=== PATIENT | female | born 1985 ===

== ENCOUNTER 2017-04-20 23:19 | Emergency (ER) | payer OTHER ==
[2017-04-20 23:32] VITALS: BP 135/84; PULSE 98; RESP 20; TEMP 98.3; O2SAT 99
--- NOTE | 2017-04-20 23:49 | ED PDOC ---
HPI: Psych/Substance Abuse Time Seen by Provider: 04/20/17 23:37 Chief Complaint (Nursing): Anxiety Chief Complaint (Provider): anxiety History Per: Patient, EMS Additional Complaint(s): Patient states she was sitting at home when she had a panic attack. She states she felt a sensation of cold sweats, palpitations and chest pressure. Patient has had panic attacks in the past but this felt longer than usual prompting her to call EMS. Upon arrival patient admits to feeling very stressed and states that she still does have slight chest pressure. Patient denies any shortness of breath. She denies suicidal or homicidal ideation. She states she smoked a hookah earlier today which she only does on occasion. Past Medical History Reviewed: Historical Data, Nursing Documentation, Vital Signs Vital Signs: Last Vital Signs Temp 98.3 F 04/20/17 23:26 Pulse 98 H 04/20/17 23:26 Resp 20 04/20/17 23:26 BP 135/84 04/20/17 23:26 Pulse Ox 99 04/20/17 23:26 - Medical History PMH: No Chronic Diseases - Surgical History Surgical History: (x 1) Other surgeries: breast augmentation - Family History Family History: States: No Known Family Hx - Living Arrangements Living Arrangements: With Family - Social History Current smoker - smoking cessation education provided: Yes (hookah on occasion) Alcohol: Social Drugs: Denies - Allergies Allergies/Adverse Reactions: Allergies Allergy/AdvReac Type Severity Reaction Status Date / Time azithromycin Allergy RASH Verified 04/20/17 23:32 [From Zithromax Z-Josh] Review of Systems ROS Statement: Except As Marked, All Systems Reviewed And Found Negative Constitutional: Positive for: Sweats Cardiovascular: Positive for: Chest Pain, Palpitations Psych: Positive for: Anxiety. Negative for: Suicidal ideation Physical Exam - Reviewed Nursing Documentation Reviewed: Yes Vital Signs Reviewed: Yes - Physical Exam Appears: Positive for: Well, Non-toxic, No Acute Distress Skin: Negative for: Rash Eye Exam: Positive for: Normal appearance Cardiovascular/Chest: Positive for: Regular Rate, Rhythm Respiratory: Positive for: Normal Breath Sounds Gastrointestinal/Abdominal: Positive for: Soft. Negative for: Tenderness, Distended, Guarding Extremity: Negative for: Pedal Edema Neurologic/Psych: Positive for: Alert, Oriented, Mood/Affect (anxious, tearful) - ECG O2 Sat by Pulse Oximetry: 99 Pulse Ox Interpretation: Normal Medical Decision Making Medical Decision Makin32 year old with anxiety and panic attack Plan: CBC CMP UDS BAL UA test EKG CXR PO xanax 0.25 mg Crisis eval Disposition - Clinical Impression Clinical Impression: Anxiety attack - Patient ED Disposition Is Patient to be Admitted: Transfer of Care - Disposition Disposition: Transfer of Care Disposition Time: 23:50 Condition: FAIR Forms: [facility] (E[place]ian) Patient Signed Over To: Gordo Quiñones Handoff Comments: Signed out pending diagnostic testing results, crisis eval and final dispo
[2017-04-20] MEDS ORDERED: Sodium Chloride 0.9% 1,000 ML IV STA (23:53)
[2017-04-21 00:27] LABS: BASO % 0.3 % (0.0-2.0); EOS % 0.3 % (0.0-4.0); HEMATOCRIT 37.1 % (34.0-47.0); LYMPH % 22.3 % (20.0-40.0); MEAN CELL VOLUME 85.9 fl (81.0-99.0); MEAN CORPUSCULAR HEMOGLOBIN 28.8 pg (27.0-31.0); MEAN CORPUSCULAR HGB CONC 33.5 g/dL (33.0-37.0); MEAN PLATELET VOLUME 8.3 fl (7.2-11.7); MONO # 0.5 K/uL (0.0-0.8); MONO % 6.3 % (0.0-10.0); NEUT # 6.2 K/uL (1.8-7.0); NEUT % 70.8 % (50.0-75.0); RED CELL DISTRIBUTION WIDTH 13.4 % (11.5-14.5); WHITE BLOOD COUNT 8.8 K/uL (4.8-10.8)
[2017-04-21 00:38] LABS: ALCOHOL SERUM < 10 mg/dl (0-10); ALKALINE PHOSPHATASE 75 U/L (38-126); ALT/SGPT 28 U/L (9-52); AST/SGOT 25 U/L (14-36); BILIRUBIN,TOTAL 0.3 mg/dl (0.2-1.3); BLOOD UREA NITROGEN 8 mg/dl (7-17); CALCIUM 9.3 mg/dL (8.4-10.2); CARBON DIOXIDE 23 mmol/L (22-30); CHLORIDE 106 mmol/L (98-107); GFR AFRICAN-AMERICAN > 60; GLUCOSE,RANDOM 111 mg/dL (65-105); POTASSIUM 4.1 MMOL/L (3.6-5.0); SODIUM 139 mmol/l (132-148); TOTAL PROTEIN 8.2 G/DL (6.3-8.2)
[2017-04-21 00:47] LABS: ALB/GLOB RATIO 1.1 (1.0-2.1)
[2017-04-21 01:15] LABS: RBC URINE 1997 /hpf (0-3); URINE BILIRUBIN NEGATIVE (NEGATIVE); URINE BLOOD LARGE (NEGATIVE); URINE COLOR RED (YELLOW); URINE GLUCOSE (UA) NEG (Normal); URINE KETONE NEGATIVE (NEGATIVE); URINE LEUKOCYTE ESTERASE TRACE Leu/uL (Negative); URINE PROTEIN 30 mg/dL (NEGATIVE); URINE UROBILINOGEN 0.2-1.0 mg/dL (0.2-1.0); WBC URINE 31 /hpf (0-5)
--- NOTE | 2017-04-21 01:55 | ED PDOC ---
- Laboratory Results Result Diagrams: 04/21/17 00:24 04/21/17 00:24 - ECG O2 Sat by Pulse Oximetry: 99 - Progress ED Course And Treament: 0000 Signed out to me pending lab results and crisis disposition. 0015 On re-evaluation pt. in no distress. Appears comfortable. Pt. was evaluated by Vijaya, granite worker, who spoke with Dr. Amato and cleared pt. for discharge. 0200 Pt. reports feeling much better. Pending CXR. Pt. no longer wants to wait for CXR and is requesting to be discharged. Disposition - Clinical Impression Clinical Impression: Anxiety attack - POA Present On Arrival: None - Disposition Disposition: Routine/Home Disposition Time: 02:03 Condition: IMPROVED Instructions: Anxiety (ED) Forms: [facility] ([place]), [facility] ED School/Work Excuse
--- NOTE | 2017-04-24 18:35 | CARD ---
APPROVED REPORT EKG Measurement Heart [id number] <Conclusion> Normal sinus rhythm Normal ECG
== END 2017-04-21 02:13 | disposition home or self-care (01) ==
LOC: H.ER 23:19
DX: F41.1 Generalized anxiety disorder (principal)
CPT/HCPCS: 80053; 80320; 80324; 80345; 80346; 80349; 80353; 80358; 80361; 81003; 81025; 83992; 84484; 85025; 99282; J7040